=== PATIENT | male | born 1995 | race Caucasian/White ===

== ENCOUNTER 2024-08-28 14:12 | Emergency (ER) | payer OTHER ==
[~2024-08-28] VITALS: Ht 177.8 cm; Wt 94.0 kg
[2024-08-28 14:15] VITALS: BP 143/75; TEMP 97.8; O2SAT 100
[2024-08-28] MEDS: LIDOCAINE 1% MDV 20ML VIAL SC ONE (14:50)
[2024-08-28] MEDS ORDERED: CEPH500C PO (15:49)
[2024-08-28] MEDS ORDERED: BACI500O8 TOP (15:50)
[2024-08-28] MEDS: CEPHALEXIN 500 MG CAP PO ONE (15:52)
== END 2024-08-28 15:56 | disposition home or self-care (01) ==
LOC: M ED 14:12
DX: S61.411A Laceration without foreign body of right hand, initial encounter (principal); W26.8XXA Contact with other sharp object(s), not elsewhere classified, initial encounter; Y92.9 Unspecified place or not applicable; Y93.89 Activity, other specified; Y99.1 Military activity